=== PATIENT | female | born 1995 | race Caucasian/White ===

== ENCOUNTER 2017-07-03 16:43 | Emergency (ER) | payer SELFPAY ==
[~2017-07-03] VITALS: Ht 162.6 cm; Wt 54.4 kg
[2017-07-03 17:12] LABS: BASO # 0.2 x10^3/uL (0.0-0.2); BASO % 1 % (0-3); EOS # 0.3 x10^3/uL (0.0-0.7); EOS % 2 % (0-3); HEMATOCRIT 39.6 % (36.0-47.0); HEMOGLOBIN 13.2 g/dL (12.0-15.5); LYMPH # 1.8 x10^3/uL (1.0-4.8); LYMPH % 15 % (24-48); MEAN CORPUSCULAR HEMOGLOBIN 29 pg (25-35); MEAN CORPUSCULAR HGB CONC 33 g/dL (31-37); MEAN CORPUSCULAR VOLUME 86 fL (79-100); MONO # 0.8 x10^3/uL (0.0-1.1); MONO % 6 % (0-9); NEUT # 9.2 x10^3uL (1.8-7.7); NEUT % 75 % (31-73); PLATELET COUNT 335 x10^3/uL (140-400); RED BLOOD COUNT 4.58 x10^6/uL (3.50-5.40); RED CELL DISTRIBUTION WIDTH 12.9 % (11.5-14.5); WHITE BLOOD COUNT 12.3 x10^3/uL (4.0-11.0)
[2017-07-03] MEDS ORDERED: RINGERS LACTATED IV ONE (17:15)
[2017-07-03 17:19] VITALS: BP 135/88
[2017-07-03 17:23] LABS: ALBUMIN 3.4 g/dL (3.4-5.0); ALBUMIN/GLOBULIN RATIO 0.7 (1.0-1.7); CALCIUM 9.2 mg/dL (8.5-10.1); CREATININE 0.8 mg/dL (0.6-1.0); GFR 89.7; POTASSIUM 3.6 mmol/L (3.5-5.1); TOTAL BILIRUBIN 0.4 mg/dL (0.2-1.0); TOTAL PROTEIN 8.3 g/dL (6.4-8.2)
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
== END 2017-07-03 17:20 | disposition short-term general hospital (02) ==
LOC: ER 16:43
DX: S02.601A Fracture of unspecified part of body of right mandible, initial encounter for closed fracture (principal); W34.00XA Accidental discharge from unspecified firearms or gun, initial encounter; Y93.01 Activity, walking, marching and hiking; Y99.8 Other external cause status; Y92.410 Unspecified street and highway as the place of occurrence of the external cause
CPT/HCPCS: 36415; 70450; 70486; 70490; 71250; 80053; 85025; 96374; 99291; J3010; J7120; 96361